=== PATIENT | male | born 1980 | race Caucasian/White ===

== ENCOUNTER 2017-05-15 09:12 | Emergency (ER) | payer OTHER ==
[2017-05-15 09:15] VITALS: TEMP 98.1
[2017-05-15] MEDS ORDERED: KETOROLAC 30 MG/ML 1 ML VIAL IVP STA (09:43)
[2017-05-15] MEDS ORDERED: ONDANSETRON ODT 8 MG TAB.RAPDIS PO STA (09:43)
[2017-05-15] MEDS ORDERED: SODIUM CHLORIDE 0.9% 1,000 ML IV STA ×2 (09:43)
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
[2017-05-15] MEDS ORDERED: ONDANSETRON 4 MG/2 ML VIAL IVP STA (09:57)
[2017-05-15 10:10] LABS: Basophils # (A) 0.1 k/uL (0-0.2); Basophils % (A) 1 %; CH 34.8; CHCM 35.7; Eosinophils # (A) 0.3 k/uL (0-0.7); Eosinophils % (A) 3 %; HCT 45.3 % (39.0-53.0); HDW 2.49; HGB 15.4 gm/dL (13.0-17.5); Luc # (Auto) 0.26; Luc % (Auto) 3; Lymphocytes % (A) 20 %; MCH 33.3 pg (25.0-35.0); MCHC 33.9 g/dL (31.0-37.0); MCV 98.1 fL (80.0-100.0); Mean Platelet Volume 7.5; Monocytes # (A) 0.6 k/uL (0-1.0); Monocytes % (A) 6 %; Neutrophils # (A) 6.7 k/uL (1.3-7.7); Neutrophils % (A) 68 %; RBC 4.62 m/uL (4.30-5.90); RDW 13.1 % (11.5-15.5); WBC 9.8 k/uL (3.8-10.6); WBC (Perox) 9.56
[2017-05-15 10:19] LABS: ALT 27 U/L (21-72); AST 21 U/L (17-59); Alkaline Phosphatase 66 U/L (38-126); Amylase 34 U/L (30-110); Anion Gap 8 mmol/L; Blood Urea Nitrogen 8 mg/dL (9-20); Calcium 8.9 mg/dL (8.4-10.2); Carbon Dioxide 24 mmol/L (22-30); Chloride 107 mmol/L (98-107); Glucose 116 mg/dL (74-99); Non-African American GFR(MDRD) >60 (>60 ml/min/1.73 sqM); Potassium 3.9 mmol/L (3.5-5.1); Sodium 139 mmol/L (137-145); Total Bilirubin 0.4 mg/dL (0.2-1.3); Total Protein 6.1 g/dL (6.3-8.2)
--- NOTE | 2017-05-15 10:55 | US ---
EXAMINATION TYPE: US gallbladder DATE OF EXAM: 05/15/2017 COMPARISON: NONE CLINICAL HISTORY: Pain. Intermittent abdomen pain x 2 weeks EXAM MEASUREMENTS: Liver Length: 16.5 cm Gallbladder Wall: 0.2 cm CBD: 0.6 cm Right Kidney: 10.8 x 4.9 x 5.1 cm Pancreas: visualized portions wnl, tail obscured by overlying midline bowel gas Liver: wnl Gallbladder: multiple shadowing mobile echogenic foci seen with largest measuring 0.8cm Evidence for sonographic Winters's sign: yes CBD: borderline dilated at 0.6cm Right Kidney: wnl IMPRESSION: Cholelithiasis without sonographic evidence of acute cholecystitis although a positive so nographic Winters's sign is noted by the mold construction supervisor. If there is further clinical concern HIDA scan c ould be performed.
[2017-05-15 11:34] LABS: Appearance,Urine Clear (Clear); Bilirubin,Urine Negative (Negative); Glucose,Urine (UA) Negative (Negative); Ketones,Urine Negative (Negative); Leukocyte Esterase,Urine Negative (Negative); Nitrite,Urine Negative (Negative); Protein,Urine Negative (Negative); Specific Gravity,Urine 1.003 (1.001-1.035); UA Billing (MACRO vs. MICRO) CHEM; Urobilinogen,Urine <2.0 mg/dL (<2.0)
[2017-05-15 12:14] VITALS: BP 102/65; PULSE 67; RESP 18
== END 2017-05-15 12:16 | disposition home or self-care (01) ==
LOC: EC 09:12
DX: K80.20 Calculus of gallbladder without cholecystitis without obstruction (principal); R19.7 Diarrhea, unspecified; F17.200 Nicotine dependence, unspecified, uncomplicated
CPT/HCPCS: 36415; 80053; 82150; 83690; 85025; 81003; 76705; 99285; 96374; 96375; 96361 ×2; J2405; J1885; 96360

== ENCOUNTER 2017-06-02 11:28 | Day surgery (SDC) | payer OTHER ==
[2017-05-25 09:24] VITALS: BMI 22.5
[~2017-06-02 11:28] MED LIST: DEXAMETHASONE SOD PHOSPHATE 10 MG/ML 1 ML VIAL IV ONE; HEPARIN SODIUM,PORCINE 5,000 UNIT/ML 1 ML VIAL SQ ONE; HYDROmorphone 1 MG/ML 1 ML SYRINGE IVP PRN; LIDOCAINE 1% 20 ML VIAL (10MG/ML) FOR IV START INTRADERMA PRN; ONDANSETRON 4 MG/2 ML VIAL IVP ONE; SCOPOLAMINE 1.5MG/72HR PATCH TRANSDERM ONE; ceFAZolin 2 GM in SODIUM CHLORIDE 0.9% 100 ML IVPB ONE
[2017-06-02] MEDS: LACTATED RINGERS 1,000 ML IV SCH ×3 (12:04→16:59)
[2017-06-02] MEDS ORDERED: GLYCOPYRROLATE 0.2 MG/ML 2 ML VIAL ONE (12:26)
[2017-06-02] MEDS ORDERED: LIDOCAINE 1% INJ 10MG/ML (20 ML MDV) ONE (12:26)
[2017-06-02] MEDS ORDERED: fentaNYL (PF) 50 MCG/ML 2 ML AMP ONE (12:26)
[2017-06-02] MEDS ORDERED: MIDAZOLAM 2 MG/2 ML VIAL ONE (12:26)
[2017-06-02] MEDS ORDERED: HYDROmorphone (PF) 1 MG/ML ONE (12:26)
[2017-06-02] MEDS ORDERED: ROCURONIUM BROMIDE 10 MG/ML 10 ML VIAL IV ONE (12:26)
[2017-06-02] MEDS ORDERED: NEOSTIGMINE 1 MG/ML 10 ML VIAL ONE (12:26)
[2017-06-02] MEDS ORDERED: PROPOFOL 10 MG/ML 20 ML VIAL IV ONE (12:26)
[2017-06-02] MEDS ORDERED: BUPIVACAINE-EPI 0.5%-1:200,000 10 ML VIAL SQ ONE ×2 (12:47)
[2017-06-02 14:05] VITALS: TEMP 97.8
[2017-06-02] MEDS ORDERED: LACTATED RINGERS 1,000 ML IV ONE (14:07)
--- NOTE | 2017-06-02 14:10 | P.OP ---
Date of Procedure: 06/02/17 Preoperative Diagnosis: Right upper quadrant pain with cholelithiasis and chronic cholecystitis Postoperative Diagnosis: Cholelithiasis with chronci cholecystitis Extensive intraabdominal adhesions between the anterior abdominal wall and colon , liver and lateral abdominal wall Procedure(s) Performed: Laparoscopic cholecystectomy Implants: Anesthesia: REY Surgeon: Justin Elizalde Pathology: other Condition: stable Disposition: PACU Indications for Procedure: Operative Findings: Description of Procedure: The patient is a 36-year-old female who presented with epigastric and upper abdominal pain which localized in the right upper quadrant t and an ultrasound suggested cholelithiasis. Clinical diagnosis of chronic cholecystitis was made. The risks benefits and possible complications of the procedure were discussed in detail and informed consent was obtained. Patient was identified in the preop operating holding area questions were answered and he was taken back to the operating room where he was placed in the supine position. He was given general anesthesia with endotracheal intubation followed by the placement of an orogastric tube and an appropriate timeout was called the indication procedure ALLERGIES medications from her prophylaxis were all discussed. Abdomen is prepped and draped in the usual sterile surgical fashion subumbilical region was infiltrated with quarter percent with local anesthesia and incision was made with 11 blade and Veress needle was introduced and abdomen was insufflated to 18 mmHg. Once that was done a 10 mm epigastric port and two 5 mm right upper quadrant ports were placed. On entry into the abdominal cavity since the lesion was seen in the right upper quadrant and the left by Doppler the abdomen. Using the electrocautery through the 12 mm port site is noted to be taken down between the anterior abdominal wall and the colon so as to be able to. Placed the 5 mm right upper quadrant ports. Once that was done wound was noticed that there was significant amount of inflammatory adhesions between the Abdominal wall and the liver and that had both tented off the liver as well as the gallbladder in a very unusual fashion. Once that was done on the 5 mm port had been placed the adhesions between the abdominal wall and the liver were taken down enough to be able to see the gallbladder. The gallbladder did not need to be retracted cephalad as much because the liver was tented up. There was extensive adhesions between the fundus and the abdominal wall giving it an acute angle. Is also extensive adhesions between the infundibulum of the gallbladder and the surrounding tissues. The gallbladder itself hung off the liver looked with the peritoneal mesentery. Extensive meticulous dissection up to be done so as to be able to clear up the right posterior wall as well as the left side ultimately taking off the hepatic plate. Multiple branches cystic artery were isolated and individually clip transected with cautery. In this manner a good critical view [place] was obtained. Cystic duct was clearly delineated from the surrounding structures prior to clipping it proximally and distally and transecting it sharply with the scissors. Gallbladder was then taken off the gallbladder fossa with the help of electrocautery. Clips were noted to be in the appropriate position. Gallbladder was then placed in an Endo Catch bag and removed through the epigastric port site. Hemostasis was secured with the help of electrocautery after which the previous report site was closed with 0 Vicryl using a Rudy [place]. All ports were removed after deflating the abdomen thoroughly. Skin was closed with 4-0 Monocryl and Dermabond was applied. Local anesthesia was infiltrated in the epigastric incision as well. The procedure was completed. The patient was extubated and taken to recovery room in stable condition.
[2017-06-02 14:15] VITALS: RESP 16
[2017-06-02] MEDS ORDERED: HYDROmorphone 1 MG/ML 1 ML SYRINGE IVP ONE ×4 (14:26→15:09)
[2017-06-02] MEDS ORDERED: ONDANSETRON 4 MG/2 ML VIAL IVP ONE (14:28)
[2017-06-02] MEDS ORDERED: KETOROLAC 30 MG/ML 1 ML VIAL IVP ONE (14:52)
[2017-06-02] MEDS ORDERED: HYDROcodone/APAP 5-325MG 1 EACH TAB PO ONE (15:35)
[2017-06-02 16:12] VITALS: BP 99/51; PULSE 85
[2017-06-02] MEDS ORDERED: METOCLOPRAMIDE 5 MG/ML 2 ML VIAL IVP ONE (16:25)
== END 2017-06-02 17:04 | disposition home or self-care (01) ==
LOC: OR 11:28
PROVIDERS: ATTEND Surgery
DX: K80.10 Calculus of gallbladder with chronic cholecystitis without obstruction (principal); K66.0 Peritoneal adhesions (postprocedural) (postinfection); F17.200 Nicotine dependence, unspecified, uncomplicated
CPT/HCPCS: 88304; 47562; J2250; J1644; J1100; J2710; J2765; J0690; J2405; J2001; J3010; J1885; J1170; J2704

== ENCOUNTER 2018-03-13 23:18 | Emergency (ER) | payer OTHER ==
[2018-03-13 23:27] VITALS: TEMP 98.2
[2018-03-13] MEDS ORDERED: PANTOPRAZOLE 40 MG/10 ML VIAL IVP STA (23:35)
[2018-03-13] MEDS ORDERED: ONDANSETRON 4 MG/2 ML VIAL IVP STA (23:35)
[2018-03-13] MEDS ORDERED: SODIUM CHLORIDE 0.9% 2,000 ML IV STA (23:35)
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
[2018-03-14 00:03] LABS: Appearance,Urine Clear (Clear); Bilirubin,Urine Negative (Negative); Blood,Urine Negative (Negative); Color,Urine Yellow; Glucose,Urine (UA) Negative (Negative); Ketones,Urine 2+ (Negative); Leukocyte Esterase,Urine Negative (Negative); Nitrite,Urine Negative (Negative); PH, Urine 5.5 (5.0-8.0); Protein,Urine Trace (Negative); Specific Gravity,Urine 1.021 (1.001-1.035); Urobilinogen,Urine <2.0 mg/dL (<2.0)
[2018-03-14 00:07] LABS: Basophils # (A) 0.1 k/uL (0-0.2); Basophils % (A) 0 %; Eosinophils # (A) 0.1 k/uL (0-0.7); Eosinophils % (A) 1 %; HCT 48.9 % (39.0-53.0); HGB 16.8 gm/dL (13.0-17.5); Lymphocytes % (A) 13 %; MCH 33.4 pg (25.0-35.0); MCHC 34.3 g/dL (31.0-37.0); MCV 97.2 fL (80.0-100.0); Mean Platelet Volume 6.6; Monocytes # (A) 0.8 k/uL (0-1.0); Monocytes % (A) 5 %; Neutrophils # (A) 11.7 k/uL (1.3-7.7); Neutrophils % (A) 79 %; Platelet Count 370 k/uL (150-450); RBC 5.03 m/uL (4.30-5.90); RDW 13.1 % (11.5-15.5); WBC 14.8 k/uL (3.8-10.6)
[2018-03-14 00:17] LABS: ALT 43 U/L (21-72); AST 32 U/L (17-59); Albumin 3.7 g/dL (3.5-5.0); Alkaline Phosphatase 79 U/L (38-126); Amylase 48 U/L (30-110); Anion Gap 7 mmol/L; Blood Urea Nitrogen 9 mg/dL (9-20); Calcium 9.4 mg/dL (8.4-10.2); Carbon Dioxide 24 mmol/L (22-30); Chloride 107 mmol/L (98-107); Glucose 97 mg/dL (74-99); Lipase 55 U/L (23-300); Potassium 4.2 mmol/L (3.5-5.1); Sodium 138 mmol/L (137-145); Total Bilirubin 0.4 mg/dL (0.2-1.3)
--- NOTE | 2018-03-14 00:38 | XR ---
EXAMINATION TYPE: XR KUB DATE OF EXAM: 03/14/2018 COMPARISON: NONE HISTORY: Nausea and vomiting TECHNIQUE: 2 views FINDINGS: There is no sign of intestinal obstruction or pneumoperitoneum. Fecal pattern is normal. Th ere are clips from cholecystectomy. There is no evidence of a mass. Lung bases are clear of consolida tion. There is slight blunting of right costophrenic angle. IMPRESSION: Nonacute abdomen. Mild pleural reaction at the right lung base.
[2018-03-14] MEDS ORDERED: MAG HYDROX/AL HYDROX/SIMETH 30 ML, HYOSCYAMINE ELIXIR 10 ML, CIMETIDINE HCL 300 MG, LID... PO STA ×4 (01:02)
[2018-03-14 01:17] VITALS: BP 117/71; PULSE 76; RESP 20
== END 2018-03-14 01:25 | disposition home or self-care (01) ==
LOC: EC 23:18
DX: K52.9 Noninfective gastroenteritis and colitis, unspecified (principal); K29.70 Gastritis, unspecified, without bleeding; F17.200 Nicotine dependence, unspecified, uncomplicated; Z90.49 Acquired absence of other specified parts of digestive tract
CPT/HCPCS: 36415; 80053; 82150; 83690; 85025; 81003; 74018; 99284; 96374; 96375; 96361; J2405; C9113

== ENCOUNTER → 2020-05-18 | Outpatient (CLI) | payer SELFPAY | END | disposition home or self-care (01) | LOC: LABWHC1 10:56 | PROVIDERS: ATTEND Emergency Medicine | DX: Z20.828 Contact with and (suspected) exposure to other viral communicable diseases (principal) | CPT/HCPCS: U0003; C9803 ==